=== PATIENT | male | born 1960 ===

== ENCOUNTER 2020-03-26 04:18 | Day surgery (SDC) | payer OTHER ==
[2020-03-24 14:02] VITALS: BMI 26.4
[~2020-03-26 04:18] MED LIST: BSS (NA/CA/MG/K) BALANCED SALT SOLUTION OPHTH SOLN 15 ML BOTTLE OD ONE; CHONDROITIN SU A/HYALUR SOD 1 KIT IO ONE; EPINEPHrine/PF 1 MG/1 ML (1:1,000) AMPULE SQ ONE; LIDOCAINE HCL 1% PRESERVATIVE FREE - 30ML VIAL IO ONE; POVIDONE-IODINE 5% OPHTHALMIC PREP 30 ML SOLUTION OD ONE; TETRACAINE 0.5% OPHTH SOLN 2 ML BOTTLE OD ONE; TOBRAMYCIN/DEXAMETHASONE OPHTH. OINTMENT 1 TUBE OD ONE
[2020-03-26] MEDS ORDERED: TOBRAMYCIN/DEXAMETHASONE OPHTH. OINTMENT 1 TUBE ONE (06:34)
[2020-03-26] MEDS ORDERED: PHENYLEPHRINE 2.5% OPHTH SOLN 15 ML BOTTLE OD ONE ×3 (06:35→06:50)
[2020-03-26] MEDS: TROPICAMIDE 1% OPHTH SOLN 15 ML BOTTLE ONE ×3 (06:35→06:50)
[2020-03-26] MEDS: CIPROFLOXACIN HCL 0.3% OPHTH 2.5ML BOTTLE ONE ×3 (06:35→06:50)
[2020-03-26] MEDS ORDERED: EPINEPHrine/PF 1 MG/1 ML (1:1,000) AMPULE ONE (06:35)
[2020-03-26] MEDS: DICLOFENAC SODIUM 0.1% OPHTHALMIC 2.5ML BOTTLE ONE ×3 (06:35→06:50)
[2020-03-26] MEDS ORDERED: TETRACAINE 0.5% OPHTH SOLN 2 ML BOTTLE ONE (06:36)
[2020-03-26] MEDS ORDERED: ACETYLCHOLINE 1:100 INTRA-OCUL 20 MG/2 ML KIT ONE (06:36)
[2020-03-26] MEDS ORDERED: LIDOCAINE HCL/PF 1% SDV 5ML VIAL ONE (06:36)
[2020-03-26] MEDS ORDERED: POVIDONE-IODINE 5% OPHTHALMIC PREP 30 ML SOLUTION ONE (06:37)
[2020-03-26] MEDS ORDERED: CHONDROITIN SU A/HYALUR SOD 1 KIT ONE (06:41)
[2020-03-26] MEDS ORDERED: ACETAMINOPHEN 325 MG TABLET (FP) PO PRN ×2 (07:19→11:05)
[2020-03-26] MEDS ORDERED: MIDAZOLAM HCL 2 MG/2 ML SINGLE DOSE VIAL ONE (07:20)
--- NOTE | 2020-03-26 07:26 | HP ---
- Patient Scheduled date of Surgery: 03/26/20 Scheduled Surgical Procedure: Phacoemulsification and cataract extraction with PCIOL Affected Eye: Right Chief Complaint (Indication for surgery): Decreased vision affecting ADLs - Ocular History Other Eye History: Other (OHTN, allergic conjunctivitis) Eye Medications: vigamox, pazeo Previous Eye Surgery: none - Medical History Illnesses: Hypertension, Hypercholesterolemia Current Medications: Ambulatory Orders Hydrochlorothiazide [Hctz -] 12.5 mg PO DAILY 03/24/20 Losartan Potassium 25 mg PO DAILY 03/24/20 Rosuvastatin Calcium [Crestor] 5 mg PO HS 03/24/20 Allergies/Adverse Reactions: Allergies Allergy/AdvReac Type Severity Reaction Status Date / Time niacin Allergy Verified 03/24/20 14:02 Ocular Examination - Best Corrected Visual Acuity Distance: Right eye: 20/40 Distance: Left eye: 20/30 - External/Slit Lamp Examination Abnormalities: 2+ papillae, fomay secretions, pingueculum, arcus - Intraocular Pressure Intraocular Pressure (mm/Hg)-Left eye: 18 - Lens Lens: 18 - Vitreous/Retina Vitreous/Retina: C:D 0.45 m/v/p wnl - Special Examination M - Right eye: -1.25-0.50 x 145 M - Left eye: -1.25 -0.50 x 140 K - Right eye: 44.64/45 x 95 K - Left eye: 44.28/44.94 x 062 AL - Right eye: 24.27 AL - Left eye: 24.17 IOL bag: +17.5 ATUOOTO IOL sulcus: +17.0 MN60AC IOL AC: +14.5 [id number] - Impression Impression: Cataract Right Eye (cortical) - Plan Plan: Phacoemulsification and cataract extraction - IOL Right eye Post-hospital care will be provided in office on: 03/27/20
--- NOTE | 2020-03-26 07:27 | HP ---
History & Physical Update - History History: No Change - Physical Physical: No Change - Assessment Assessment: No Change - Plan Plan: No Change (H and P reviewed from Dr. Reyes 03/17/2020 , no changes)
[2020-03-26] MEDS ORDERED: KETOROLAC TROMETHAMINE 0.5% EYE DROP 1 DROP DROPS OP SCH (07:30)
[2020-03-26] MEDS ORDERED: PHENYLEPHRINE 2.5% OPHTH SOLN 15 ML BOTTLE OP SCH (07:30)
[2020-03-26] MEDS ORDERED: CIPROFLOXACIN HCL 0.3% OPHTH 2.5ML BOTTLE OP SCH (07:30)
[2020-03-26] MEDS ORDERED: TROPICAMIDE 1% OPHTH SOLN 15 ML BOTTLE OP SCH (07:30)
[2020-03-26] MEDS ORDERED: TETRACAINE 0.5% OPHTH SOLN 2 ML BOTTLE OD ONE (07:35)
[2020-03-26] MEDS ORDERED: POVIDONE-IODINE 5% OPHTHALMIC PREP 30 ML SOLUTION OD ONE (07:37)
[2020-03-26] MEDS ORDERED: LIDOCAINE HCL 1% PRESERVATIVE FREE - 30ML VIAL IO ONE (07:45)
[2020-03-26] MEDS ORDERED: BSS (NA/CA/MG/K) BALANCED SALT SOLUTION OPHTH SOLN 15 ML BOTTLE OD ONE (07:45)
[2020-03-26] MEDS ORDERED: CHONDROITIN SU A/HYALUR SOD 1 KIT IO ONE (07:45)
[2020-03-26] MEDS ORDERED: EPINEPHrine/PF 1 MG/1 ML (1:1,000) AMPULE SQ ONE (07:52)
[2020-03-26] MEDS ORDERED: TOBRAMYCIN/DEXAMETHASONE OPHTH. OINTMENT 1 TUBE OD ONE (08:05)
--- NOTE | 2020-03-26 08:20 | OP ---
Ophthalmology Operative Note Pre-Operative Diagnosis: Cataract (cortical) Affected Eye: Right Operation: Phacoemulsification and cataract extraction with PCIOL Findings: cortical cataract Post-Operative Diagnosis: Same as Pre-op Internet Developer: None Anesthesiologist: Fernando Collins Anesthesia: Topical Specimens Removed: none Estimated blood loss: < 1cc Drains & Tubes with Location: none Operative Report Dictated: Yes
--- NOTE | 2020-03-26 08:48 | OP ---
DATE OF OPERATION: DATE OF DICTATION: 03/26/2020 PREOPERATIVE DIAGNOSIS: Cortical cataract, right eye. POSTOPERATIVE DIAGNOSIS: Cortical cataract, right eye. PROCEDURE: Phacoemulsification and cataract extraction with insertion of posterior chamber intraocular lens, right eye. SURGEON: Anny Uribe MD ENVIRONMENTAL PERMITTING SPECIALIST: None. ANESTHESIA: Topical. ANESTHESIOLOGIST: Fernando Collins CRNA OPERATIVE PROCEDURE: The patient received tetracaine eye drops and was gently sedated and prepped and draped in the usual sterile fashion so as to expose only the right eye. Ophthalmic Betadine was instilled into the inferior fornix and lashes were taped out of the surgical field. An eyelid speculum was placed into the right eye. Paracentesis was made in superior temporal clear cornea at the limbus. Then 0.5 mL of nonpreserved lidocaine 1% was injected into the anterior chamber and then 1 mL of dilute epinephrine 1:10,000 was injected into the anterior chamber to improve pupillary dilation. Viscoelastic material was instilled into the anterior chamber via the paracentesis. A 2.4-mm keratome blade was then used to create the main incision in temporal clear cornea at the limbus. A continuous curvilinear capsulorrhexis was performed using a cystotome and Utrata forceps. Hydrodissection of the lens cortex was performed using BSS on a cannula until the nucleus was noted to be freely rotating. The phacoemulsification tip was then inserted via the main wound and used to scope 2 perpendicular grooves into the lens nucleus. The nucleus was cracked into 4 quadrants. Each quadrant was lifted out of the capsule into the iris plane and individually phacoemulsified. The remaining cortical material was then aspirated using the irrigation/aspiration port. The capsular bag was inflated using Provisc and a preloaded AcrySof lens model AU00T0 power +18.0 diopters was injected into the capsular bag. It was centered using a Sinskey hook. The residual viscoelastic material was removed from the anterior chamber using irrigation and aspiration. The wound edges were hydrated using BSS. The wound was tested for leakage and was found to be watertight. Tobradex ointment was placed in the eye, and the speculum was removed from the eye, and the eyelid was closed. A sterile dressing and shield were placed over the eye. The patient was transferred to the recovery room in stable condition, told to follow up in 1 day. Cassi [id number]
[2020-03-26 10:11] VITALS: BP 141/83; PULSE 87; TEMP 98.4
[2020-03-26] MEDS ORDERED: ONDANSETRON 4 MG/2 ML VIAL IVPUSH PRN (11:05)
[2020-03-26] MEDS ORDERED: LACTATED RINGERS SOLUTION 1,000 ML IV SCH (11:15)
== END 2020-03-26 09:15 | disposition home or self-care (01) ==
LOC: JASU-SURG 04:18
PROVIDERS: ATTEND Ophthalmology
PROC: 08RJ3JZ Replacement of Right Lens with Synthetic Substitute, Percutaneous Approach (ICD-10-PCS; principal; 2020-03-26 07:30)
DX: H26.8 Other specified cataract (principal)

== ENCOUNTER 2020-04-09 04:36 | Day surgery (SDC) | payer OTHER ==
[2020-04-08 11:24] VITALS: BMI 26.4
[~2020-04-09 04:36] MED LIST changes: -BSS (NA/CA/MG/K) BALANCED SALT SOLUTION OPHTH SOLN 15 ML BOTTLE OD ONE; +BSS (NA/CA/MG/K) BALANCED SALT SOLUTION OPHTH SOLN 15 ML BOTTLE OS ONE; -POVIDONE-IODINE 5% OPHTHALMIC PREP 30 ML SOLUTION OD ONE; +POVIDONE-IODINE 5% OPHTHALMIC PREP 30 ML SOLUTION OS ONE; -TETRACAINE 0.5% OPHTH SOLN 2 ML BOTTLE OD ONE; +TETRACAINE 0.5% OPHTH SOLN 2 ML BOTTLE OS ONE; -TOBRAMYCIN/DEXAMETHASONE OPHTH. OINTMENT 1 TUBE OD ONE; +TOBRAMYCIN/DEXAMETHASONE OPHTH. OINTMENT 1 TUBE OS ONE
[2020-04-09] MEDS ORDERED: TROPICAMIDE 1% OPHTH SOLN 15 ML BOTTLE ONE (06:21)
[2020-04-09] MEDS ORDERED: CIPROFLOXACIN HCL 0.3% OPHTH 2.5ML BOTTLE ONE (06:21)
[2020-04-09] MEDS ORDERED: KETOROLAC TROMETHAMINE 0.5% EYE DROP 1 DROP DROPS ONE (06:21)
[2020-04-09] MEDS: PHENYLEPHRINE 2.5% OPHTH SOLN 15 ML BOTTLE OP SCH ×3 (06:35→06:45)
[2020-04-09] MEDS ORDERED: EPINEPHrine/PF 1 MG/1 ML (1:1,000) AMPULE ONE (06:36)
[2020-04-09] MEDS ORDERED: TOBRAMYCIN/DEXAMETHASONE OPHTH. OINTMENT 1 TUBE ONE (06:36)
[2020-04-09] MEDS ORDERED: POVIDONE-IODINE 5% OPHTHALMIC PREP 30 ML SOLUTION ONE (06:37)
[2020-04-09] MEDS ORDERED: LIDOCAINE HCL/PF 1% SDV 5ML VIAL ONE (06:37)
[2020-04-09] MEDS ORDERED: TETRACAINE 0.5% OPHTH SOLN 2 ML BOTTLE ONE (06:37)
[2020-04-09] MEDS: KETOROLAC TROMETHAMINE 0.5% EYE DROP 1 DROP DROPS OP SCH ×2 (06:40→06:45)
[2020-04-09] MEDS: CIPROFLOXACIN HCL 0.3% OPHTH 2.5ML BOTTLE OP SCH ×2 (06:40→06:45)
[2020-04-09] MEDS: TROPICAMIDE 1% OPHTH SOLN 15 ML BOTTLE OP SCH ×2 (06:40→06:45)
[2020-04-09] MEDS ORDERED: CHONDROITIN SU A/HYALUR SOD 1 KIT ONE (06:41)
[2020-04-09] MEDS ORDERED: MIDAZOLAM HCL 2 MG/2 ML SINGLE DOSE VIAL ONE (07:00)
--- NOTE | 2020-04-09 07:21 | HP ---
- Patient Scheduled date of Surgery: 04/09/20 Scheduled Surgical Procedure: Phacoemulsification and cataract extraction with PCIOL Affected Eye: Left Chief Complaint (Indication for surgery): Decreased vision affecting ADLs - Ocular History Other Eye History: Other (glaucoma suspect , allergic conjunctivitis) Eye Medications: pataday 06/05 , vigamox 0/3 Previous Eye Surgery: s/p ce/pciol OD - Medical History Illnesses: Hypertension, Hypercholesterolemia Current Medications: Ambulatory Orders Hydrochlorothiazide [Hctz -] 12.5 mg PO DAILY 03/24/20 Losartan Potassium 25 mg PO DAILY 03/24/20 Rosuvastatin Calcium [Crestor] 5 mg PO HS 03/24/20 Cetirizine HCl [Zyrtec -] 10 mg PO DAILY PRN 04/09/20 Allergies/Adverse Reactions: Allergies Allergy/AdvReac Type Severity Reaction Status Date / Time niacin Allergy Verified 03/24/20 14:02 Ocular Examination - Best Corrected Visual Acuity Distance: Right eye: 20/40 Distance: Left eye: 20/20 - External/Slit Lamp Examination Abnormalities: papilla, foamy secretions, arcus senilis - Intraocular Pressure Intraocular Pressure (mm/Hg) - Right eye: 16 Intraocular Pressure (mm/Hg)-Left eye: 18 - Lens Lens: 2+ NS - Vitreous/Retina Vitreous/Retina: C:D 0.45 m/v/p wnl - Special Examination M - Right eye: -1.00-0.50 x175 M - Left eye: -1.25 -0.50 x 140 K - Right eye: 44.25/45.25 x95 K - Left eye: 44.50/44.75 x065 AL - Right eye: 24.27 AL - Left eye: 24.17 IOL bag: +17.5 AUOOOT IOL sulcus: +17.0 MN60AC IOL AC: +14.5 MTA 4u0 - Impression Impression: Cataract Left Eye - Plan Plan: Phacoemulsification and cataract extraction - IOL Left eye Post-hospital care will be provided in office on: 04/10/20
--- NOTE | 2020-04-09 07:22 | HP ---
History & Physical Update - History History: No Change - Physical Physical: No Change - Assessment Assessment: No Change - Plan Plan: No Change (H and P reviewed from DR. Bob from 03/17/2020 NO changes)
[2020-04-09] MEDS ORDERED: TETRACAINE 0.5% OPHTH SOLN 2 ML BOTTLE OS ONE (07:30)
[2020-04-09] MEDS ORDERED: POVIDONE-IODINE 5% OPHTHALMIC PREP 30 ML SOLUTION OS ONE (07:34)
[2020-04-09] MEDS ORDERED: LIDOCAINE HCL 1% PRESERVATIVE FREE - 30ML VIAL IO ONE (07:39)
[2020-04-09] MEDS ORDERED: CHONDROITIN SU A/HYALUR SOD 1 KIT IO ONE (07:39)
[2020-04-09] MEDS ORDERED: BSS (NA/CA/MG/K) BALANCED SALT SOLUTION OPHTH SOLN 15 ML BOTTLE OS ONE (07:39)
[2020-04-09] MEDS ORDERED: EPINEPHrine/PF 1 MG/1 ML (1:1,000) AMPULE SQ ONE (07:47)
[2020-04-09] MEDS ORDERED: TOBRAMYCIN/DEXAMETHASONE OPHTH. OINTMENT 1 TUBE OS ONE (08:00)
--- NOTE | 2020-04-09 08:13 | OP ---
Ophthalmology Operative Note Pre-Operative Diagnosis: Cataract Affected Eye: Left Operation: Phacoemulsification and cataract extraction with PCIOL Findings: NS cataract Post-Operative Diagnosis: Same as Pre-op Aerospace Medicine Physician: None Anesthesiologist: Anup Zapata Anesthesia: Topical Specimens Removed: none Estimated blood loss: < 1cc Drains & Tubes with Location: None Operative Report Dictated: Yes
[2020-04-09 08:56] VITALS: BP 114/96; PULSE 85; TEMP 97.9
--- NOTE | 2020-04-10 11:49 | OP ---
DATE OF OPERATION: 04/09/2020 DATE OF OPERATION: 04/09/2020 DATE OF DICTATION: 04/09/2020 PREOPERATIVE DIAGNOSIS: Nuclear sclerotic cataract, left eye. POSTOPERATIVE DIAGNOSIS: Nuclear sclerotic cataract, left eye. PROCEDURE: Phacoemulsification and cataract extraction with insertion of posterior chamber intraocular lens, left eye. SURGEON: Anny Uribe MD ORDER PICKER/ASSEMBLER: None. ANESTHESIA: Topical. ANESTHESIOLOGIST: Edgar Zapata MD OPERATIVE PROCEDURE: The patient received Tetracaine eye drops and was gently sedated and prepped and draped in the usual sterile fashion so as to expose only the left eye. Ophthalmic Betadine was instilled into the inferior fornix and lashes were taped out of the surgical field. An eyelid speculum was placed into the left eye. Paracentesis was made in inferior temporal clear cornea at the limbus. Then 0.5 mL of nonpreserved lidocaine 1% was injected into the anterior chamber and then 1 mL of dilute epinephrine 1:10,000 was injected into the anterior chamber to improve pupillary dilation. Viscoelastic material was instilled into the anterior chamber via the paracentesis. A 2.4-mm keratome blade was then used to create the main incision in temporal clear cornea at the limbus. A continuous curvilinear capsulorhexis was performed using a cystotome and Utrata forceps. Hydrodissection of the lens cortex was performed using BSS on a cannula until the nucleus was noted to be freely rotating. The phacoemulsification tip was then inserted via the main wound and used to scope 2 perpendicular grooves into the lens nucleus. The nucleus was cracked into 4 quadrants. Each quadrant was lifted out of the capsule into the iris plane and individually phacoemulsified. The remaining cortical material was then aspirated using the irrigation/aspiration port. The capsular bag was inflated using ProVisc and a preloaded AcrySof lens model [id number] power +17.5 diopters was injected into the capsular bag. It was centered using a Sinskey hook. The residual viscoelastic material was removed from the anterior chamber using irrigation and aspiration. The wound edges were hydrated using BSS. The wound was tested for leakage and was found to be watertight. Tobradex ointment was placed in the eye, and the speculum was removed from the eye, and the eyelid was closed. A sterile dressing and shield were placed over the eye. The patient was transferred to the recovery room in stable condition, told to follow up in 1 day. ANNY URIBE M.D. [id number]
== END 2020-04-09 09:05 | disposition home or self-care (01) ==
LOC: JASU-SURG 04:36
PROVIDERS: ATTEND Ophthalmology
PROC: 08RK3JZ Replacement of Left Lens with Synthetic Substitute, Percutaneous Approach (ICD-10-PCS; principal; 2020-04-09 07:30)
DX: H25.12 Age-related nuclear cataract, left eye (principal)